=== PATIENT | male | born 1975 ===

== ENCOUNTER 2018-09-21 17:01 | Emergency (ER) | payer SELFPAY ==
[2018-09-21] MEDS ORDERED: Sodium Chloride 0.9% 1,000 ML IV ONE ×2 (17:37→18:28)
[2018-09-21] MEDS ORDERED: Aluminum Hydroxide/Magnesium Hydroxide Susp (30 mL) PO STA (17:44)
[2018-09-21] MEDS ORDERED: Morphine 4 MG/ML VIAL IV ONE (17:46)
--- NOTE | 2018-09-21 17:46 | C.PDOC ---
History Of Present Illness 43 year old male brought to ED via EMS with complaint of abdominal pain that began at 4 am today. Patient states that he had been drinking heavily yesterday and claims that he has vomited 20-25 times. Patient states that he couldn't keep the water he was drinking down. Patient states that he vomited on the way to the ED and once in the ED. Patient rates his pain as an 8/10 and states that earlier it was a 10/10. Patient states that he had nothing to drink today. Patient also states that he has been experiencing fever and chills. His last bowel movement was today. He has experienced similar symptoms in the past, but today it is worse. Patient denies chest pain, SOB, headache, dizziness, and diarrhea. 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 Time Seen by Provider: 09/21/18 17:17 Chief Complaint (Nursing): Abdominal Pain History Per: Patient, Clinical Nurse Educator (ID:[id number]) History/Exam Limitations: no limitations Onset/Duration Of Symptoms: Hrs (13) Current Symptoms Are (Timing): Still Present Pain Scale Rating Of: 8 Location Of Pain/Discomfort: Diffuse, Epigastric Quality Of Discomfort: "Pain" Associated Symptoms: Fever, Chills. denies: Diarrhea, Chest Pain Additional History Per: Patient Past Medical History Reviewed: Historical Data, Nursing Documentation, Vital Signs Vital Signs: Last Vital Signs Temp 98.5 F 09/21/18 17:05 Pulse 86 09/21/18 17:05 Resp 20 09/21/18 17:05 BP 156/98 H 09/21/18 17:05 Pulse Ox 95 09/21/18 17:05 - Medical History PMH: No Chronic Diseases Surgical History: No Surg Hx Family History: States: Hypertension - Social History Hx Tobacco Use: Yes Hx Alcohol Use: Yes Hx Substance Use: No - Immunization History Hx Tetanus Toxoid Vaccination: No Hx Influenza Vaccination: No Hx Pneumococcal Vaccination: No Review Of Systems Constitutional: Positive for: Fever, Chills. Negative for: Weakness Cardiovascular: Negative for: Chest Pain, Palpitations Respiratory: Negative for: Cough, Shortness of Breath Gastrointestinal: Positive for: Vomiting, Abdominal Pain (epigastric and radaiting diffusely throughout the abdomen). Negative for: Diarrhea Neurological: Negative for: Weakness, Numbness, Dizziness Physical Exam - Physical Exam Appears: Non-toxic, No Acute Distress Skin: Normal Color, Warm, Dry Head: Atraumatic, Normacephalic Eye(s): bilateral: Other (injection) Oral Mucosa: Dry Throat: Erythema Neck: Normal ROM, Supple Chest: Symmetrical Cardiovascular: Rhythm Regular Respiratory: Normal Breath Sounds, No Wheezing Gastrointestinal/Abdominal: Soft, Tenderness (diffuse but mainly epigastric), No Guarding, No Rebound Back: No CVA Tenderness Neurological/Psych: Oriented x3, Normal Speech, Normal Cognition, Normal Sens ation ED Course And Treatment - Laboratory Results Result Diagrams: 09/21/18 18:01 09/21/18 18:01 O2 Sat by Pulse Oximetry: 95 (RA) Progress Note: Labs ordered with UA for patient. Patient given Maalox PO, Protonix IVP, IV fluids, Morphine, and Zofran IVP. Rectal temp 100.2. Labs reviewed and patient reassessed; pain has slightly improved but still nauseous; repeat dose of Zofran ordered. Additional IV fluids ordered. PO challenge after completion of second Liter of NS Disposition - Disposition Disposition Time: 19:04 Condition: STABLE Forms: [employer] (Namibian) - Clinical Impression Clinical Impression: Abdominal pain, Nausea, Alcoholic gastritis, Hematuria - PA / RECEPTIONIST NURSE / Resident Statement MD/DO has reviewed & agrees with the documentation as recorded. (Carmenza Sherman) - Scribe Statement The provider has reviewed the documentation as recorded by the Scribe (Carmenza Sherman) All medical record entries made by the Scribe were at my direction and personally dictated by me. I have reviewed the chart and agree that the record a ccurately reflects my personal performance of the history, physical exam, medical decision making, and the department course for this patient. I have also personally directed, reviewed, and agree with the discharge instructions and disposition. Physician Patient Turnover Patient Signed Over To: Stepan Lee Handoff Comments: pending PO challenge
[2018-09-21 18:04] LABS: BASO % 0.2 % (0.0-2.0); HEMOGLOBIN 17.9 g/dL (12.0-18.0); LYMPH # 0.5 K/uL (1.0-4.3); LYMPH % 3.1 % (20.0-40.0); MEAN CELL VOLUME 85.8 fL (80.0-94.0); MEAN CORPUSCULAR HEMOGLOBIN 29.1 pg (27.0-31.0); MEAN CORPUSCULAR HGB CONC 33.9 g/dL (33.0-37.0); MEAN PLATELET VOLUME 8.7 fL (7.2-11.7); MONO # 0.8 K/uL (0.0-0.8); MONO % 5.2 % (0.0-10.0); NEUT # 14.6 K/uL (1.8-7.0); NEUT % 91.5 % (50.0-75.0); NRBC % 0.1 % (0.0-2.0); PLATELET COUNT 164 K/uL (130-400); RBC 6.14 Mil/uL (4.40-5.90); RED CELL DISTRIBUTION WIDTH 13.3 % (11.5-14.5); WHITE BLOOD COUNT 15.9 K/uL (4.8-10.8)
[2018-09-21] MEDS ORDERED: Sodium Chloride 0.9% 1,000 ML ONE ×2 (18:04→19:48)
[2018-09-21] MEDS ORDERED: Aluminum Hydroxide/Magnesium Hydroxide Susp (30 mL) ONE (18:05)
--- NOTE | 2018-09-21 18:05 | C.PDOC ---
Time Seen by Provider: 09/21/18 17:17 Chief Complaint (Nursing): Abdominal Pain Past Medical History Vital Signs: Last Vital Signs Temp 98.5 F 09/21/18 17:05 Pulse 86 09/21/18 17:05 Resp 20 09/21/18 17:05 BP 156/98 H 09/21/18 17:05 Pulse Ox 95 09/21/18 17:05 Family History: States: Unknown Family Hx - Social History Hx Tobacco Use: Yes Hx Alcohol Use: Yes Hx Substance Use: No - Immunization History Hx Tetanus Toxoid Vaccination: No Hx Influenza Vaccination: No Hx Pneumococcal Vaccination: No ED Course And Treatment O2 Sat by Pulse Oximetry: 95 Disposition Counseled Patient/Family Regarding: Diagnosis, Need For Followup - Disposition Disposition: HOME/ ROUTINE Condition: STABLE - Clinical Impression Clinical Impression: Abdominal pain, Nausea, Alcoholic gastritis - PA / SUBCONTRACTS MANAGER / Resident Statement /DO has reviewed & agrees with the documentation as recorded.
[2018-09-21 18:17] LABS: ALB/GLOB RATIO 1.4 (1.0-2.1); ALBUMIN 5.4 g/dL (3.5-5.0); ALT/SGPT 28 U/L (21-72); AMYLASE 78 U/L (30-110); AST/SGOT 65 U/L (17-59); BLOOD UREA NITROGEN 15 mg/dL (9-20); CALCIUM 9.7 mg/dl (8.6-10.4); GFR NON-AFRICAN AMERICAN > 60; LIPASE 24 U/L (23-300)
[2018-09-21 18:20] VITALS: TEMP 100.2
[2018-09-21 18:42] LABS: URINE COLOR AMBER (YELLOW)
[2018-09-21 18:43] LABS: PH,URINE 6.5 (5.0-8.0); URINE BILIRUBIN MODERATE (NEGATIVE); URINE BLOOD SMALL (NEGATIVE); URINE CLARITY CLEAR (Clear); URINE GLUCOSE (UA) 100 mg/dL (Normal); URINE PROTEIN 100 mg/dL (NEGATIVE)
[2018-09-21 18:44] LABS: SQUAMOUS EPITHIAL 5 /hpf (0-5); URINE BACTERIA FEW (<OCC); URINE LEUKOCYTE ESTERASE NEGATIVE Leu/uL (Negative)
[2018-09-21 18:48] LABS: LYMPHOCYTE 3 % (20-40); MONOCYTE 5 % (0-10); NEUTROPHIL 92 % (50-75); PLATELET ESTIMATE NORMAL (NORMAL); TOTAL CELLS COUNTED 100
[2018-09-21] MEDS ORDERED: Piperacillin/Tazobact 3.375 gm 100 ML IVPB STA (19:14)
[2018-09-21] MEDS ORDERED: Iohexol 300 100 ML IJ ONE (19:31)
[2018-09-21] MEDS ORDERED: Piperacillin/Tazobact 3.375 gm 100 ML IVPB ONE (19:48)
[2018-09-21 22:03] VITALS: BP 137/81; PULSE 91; RESP 17; O2SAT 99
--- NOTE | 2018-09-22 07:27 | CT ---
Date of service: 09/21/2018 PROCEDURE: CT Abdomen and Pelvis with contrast HISTORY: epigastric tenderness, leukocytosis, fever COMPARISON: None. TECHNIQUE: Contrast dose: 100 mL of Omnipaque 300 intravenously. Axial and reformatted coronal and sagittal CT images of the abdomen and pelvis were obtained after IV contrast administration. Radiation dose: Total exam DLP = 612.02 mGy-cm. This CT exam was performed using one or more of the following dose reduction techniques: Automated exposure control, adjustment of the mA and/or kV according to patient size, and/or use of iterative reconstruction technique. FINDINGS: LOWER THORAX: Minimal bibasilar atelectasis noted. No evidence of pleural effusion. There is a small to moderate size hiatus hernia. Fluid and air-fluid level noted in the distal portion of the esophagus. LIVER: Mild hepatomegaly and findings suggestive of [id number] hepatic steatosis is noted. GALLBLADDER AND BILE DUCTS: Mild gallbladder wall thickening without evidence of pericholecystic fluid or inflammatory changes to suggest acute cholecystitis. PANCREAS: Unremarkable. No gross lesion or ductal dilatation. SPLEEN: Unremarkable. ADRENALS: Unremarkable. No mass. KIDNEYS AND URETERS: Unremarkable. No hydronephrosis. No solid mass. VASCULATURE: Unremarkable. No aortic aneurysm. No aortic atherosclerotic calcification or mural plaque present. BOWEL: Mild diffuse small bowel wall thickening suspicious for enteritis. APPENDIX: Normal appendix. PERITONEUM: Unremarkable. No free fluid. No free air. LYMPH NODES: Unremarkable. No enlarged lymph nodes. BLADDER: Unremarkable. REPRODUCTIVE: The prostate and seminal vesicles are mildly enlarged. BONES: No acute fracture. OTHER FINDINGS: None. IMPRESSION: Moderate size hiatus hernia. Diffuse small bowel wall thickening suspicious for enteritis. Additional findings as discussed above. Preliminary report was submitted by [facility] Radiology contains concordant findings.
== END 2018-09-21 22:10 | disposition home or self-care (01) ==
LOC: C.ER 17:01
DX: K29.20 Alcoholic gastritis without bleeding (principal); R31.9 Hematuria, unspecified
CPT/HCPCS: 74177; 80053; 81001; 82150; 83690; 85025; 87040; 96361; 96374; 96375; 96376; 99284; C9113; J2270; J2405; J2543; J7030; Q9967